=== PATIENT | female | born 1935 | race Caucasian/White ===

== ENCOUNTER → 2017-03-01 | Outpatient (REF) | payer MEDICARE, OTHER ==
[~2017-03-01] MED LIST: /WARF25TA OR; ACET500C; ACET50TAOT PO; ACET65TA; ACET65TA OR; AKWA TEARS OU; ALREX; AMBI5TAB; AMLO5TAB2 PO; AMLODIPINE; ASPI1TAB PO; ASPI81TA45 PO; AZEL0.1S3; BENZEPRIL; BUME1TA PO; BUME1TAB OR; CATA0.1T; CEFT2VL IV; CENTRUM SILVER VIT PO; CENTTAB PO; CLAR5CHW OR; COLA100C2; COLA100C2 OR; CRANBERRY PO; DO NOT TAKE; ECOT325T5; ESTR125TA; ESTR125TA OR; ESTR125TA PO; ESTRACE CREAM; ESTRACE CREAM PV; ESTRACE PV; FISH1000 PO; FLAG500T PO; GABA-282 PO; GABA300T; HEPARIN; HYDROCORTISONE0.5 % EX; LANS30CA PO; LISI-538 PO; LISI20TA5 OR; LOTE0.5S OU; LOTREL; MELO15TA3 PO; MELO15TA4 PO; MELOPOW; MELOPOW PO; MOME50SP; NASONEX; NORV5TAB; OPTI0.5D5 OU; OPTIVE EYE OU; PARO20TA3 PO; PAXI20TA OR; PREV30TA; PREV30TA OR; ROCEPHIN; SALINE FLUSH; SALINE NASAL SPRAY; SENO8.6T5 OR; SIMV40TA2 OR; SODIGEL; THERGRAN; TRAM100T; TRAM50TA2; TRAM50TA2 OR; TUMS500C OR; ULTR50TA PO; VITA500019 PO; VITA500046 PO; VITA500T; VITACAP31 PO; VITAMIN D50000 UNT; VITAMIND3 PO; XARE20TA PO; ZOCO40TA PO; [UNRECOGNIZED DRUG - CODE]; [UNRECOGNIZED DRUG - CODE] PO; [UNRECOGNIZED DRUG - CODE] PO; [UNRECOGNIZED DRUG - OTHER]; [UNRECOGNIZED DRUG - OTHER] PR
[2017-03-05 00:06] LABS: Lyme Disease IgG/IgM Antibodie <0.91 ISR (0.00-0.90); Lyme Disease IgM Ab Quantitati <0.80 index (0.00-0.79)
== END ==
LOC: M LAB REF 16:52
PROVIDERS: ATTEND Nurse Practitioner Family
DX: R21 Rash and other nonspecific skin eruption (principal)

== ENCOUNTER → 2017-05-31 | Outpatient (CLI) | payer MEDICARE, OTHER ==
--- NOTE | 2017-05-31 10:05 | REP ---
CHEST, TWO VIEWS: Two views of the chest are performed and compared to multiple prior exams, the most recent of which is 03/13/2016. There is scattered interstitial fibrosis bilaterally. There is chronic elevation of the right hemidiaphragm. I see no acute infiltrate. The heart is not enlarged. There is calcified tortuous aorta. Mediastinal silhouette is unchanged. There are degenerative changes of the spine. IMPRESSION: Stable chronic findings without evidence of acute infiltrate. Signed by Iron Agudelo MD 05/31/2017 04:57 P
== END ==
LOC: M WUC 09:33
PROVIDERS: ATTEND Physician Assistant
DX: R05 Cough (principal)

== ENCOUNTER 2018-01-31 12:15 | Emergency (ER) | payer MEDICARE, BC, OTHER | END 2018-01-31 13:30 | disposition home or self-care (01) | LOC: M ED 12:15 | DX: S00.531A Contusion of lip, initial encounter (principal); S80.211A Abrasion, right knee, initial encounter; W18.00XA Striking against unspecified object with subsequent fall, initial encounter; Y92.232 Corridor of hospital as the place of occurrence of the external cause; I10 Essential (primary) hypertension; K21.9 Gastro-esophageal reflux disease without esophagitis; F33.9 Major depressive disorder, recurrent, unspecified; Z82.49 Family history of ischemic heart disease and other diseases of the circulatory system; Z88.5 Allergy status to narcotic agent; Z88.8 Allergy status to other drugs, medicaments and biological substances; Z88.2 Allergy status to sulfonamides | CPT/HCPCS: 99282 ==

== ENCOUNTER → 2018-08-18 | Outpatient (REF) | payer MEDICARE, BC ==
[~2018-08-18] MED LIST changes: +ACET500T15 PO; -ACET50TAOT PO; +AMLO5TAB6 PO; +ASPI81TA85 PO; -BUME1TA PO; +BUME1TAB3 PO; +CULT10CA2 PO; -GABA-282 PO; +GABA-843 PO; +MELO15TA28 PO; -MELO15TA4 PO; +SYNT50TA PO; +VITA2000 PO
[2018-08-18 19:40] LABS: PERCENT SATURATION 5.3 % (13.2-45.0)
== END ==
LOC: M LAB REF 17:40
PROVIDERS: ATTEND Internal Medicine
DX: D64.9 Anemia, unspecified (principal)

== ENCOUNTER → 2018-09-30 | Outpatient (REF) | payer MEDICARE, BC ==
[~2018-09-30] MED LIST changes: -/WARF25TA OR; +ASPI81TA26 PO; +COUM1TAB18 OR
[2018-09-30 13:06] LABS: PERCENT SATURATION 37.9 % (13.2-45.0)
== END ==
LOC: M LAB REF 12:16
PROVIDERS: ATTEND Internal Medicine
DX: D64.9 Anemia, unspecified (principal)

== ENCOUNTER 2019-02-11 06:15 | Emergency (ER) | payer MEDICARE, BC ==
[~2019-02-11] VITALS: Ht 152.4 cm; Wt 50.0 kg
[2019-02-11] MEDS ORDERED: ESTR125TA PO (06:45)
[2019-02-11] MEDS ORDERED: IRON1TAB2 PO (06:45)
[2019-02-11] MEDS ORDERED: D 101000 PO (06:45)
[2019-02-11] MEDS ORDERED: MAGN1CAP PO (06:45)
[2019-02-11 06:55] LABS: BASO # 0.1 10^3/uL (0.0-0.2); EOS # 0.2 10^3/uL (0.0-0.50); EOS % 2.5 % (0.0-3.0); HEMATOCRIT 38.4 % (36.0-47.0); HEMOGLOBIN 12.3 g/dl (12.0-15.5); LYMPH # 1.5 10^3/uL (1.5-4.5); LYMPH % 21.3 % (24.0-44.0); MEAN CORPUSCULAR HEMOGLOBIN 30.4 pg (27.0-33.0); MEAN CORPUSCULAR VOLUME 94.8 fl (80.0-96.0); MONO # 0.6 10^3/uL (0.0-0.8); MONO % 7.8 % (0.0-5.0); NEUTROPHILS # 4.8 10^3/uL (1.8-7.7); NEUTROPHILS % 67.1 % (36.0-66.0); PLATELET COUNT, AUTOMATED 231 10^3/uL (150-450); RED BLOOD COUNT 4.05 10^6/uL (4.00-5.40); WHITE BLOOD COUNT 7.2 10^3/uL (4.0-10.0)
[2019-02-11 07:20] LABS: CALCIUM LEVEL 8.9 MG/DL (8.8-10.2); CREATININE FOR GFR 1.08 MG/DL (0.55-1.30); GLOMERULAR FILTRATION RATE 51.5 (>32); POTASSIUM SERUM 4.7 MEQ/L (3.5-5.1)
[2019-02-11] MEDS ORDERED: MECLIZINE 25 MG TABLET PO ONE (07:30)
--- NOTE | 2019-02-11 07:42 | REPVR ---
EXAM: CT Head Without Contrast EXAM DATE/TIME: 02/11/2019 7:35 AM CLINICAL HISTORY: 83 years old, female; Pain; Headache; Additional info: Vertigo TECHNIQUE: Imaging protocol: Computed tomography images of the head without contrast. Radiation optimization: All CT scans at this facility use at least one of these dose optimization techniques: automated exposure control; mA and/or kV adjustment per patient size (includes targeted exams where dose is matched to clinical indication); or iterative reconstruction. COMPARISON: CT Head without contrast 08/12/2015 3:29 AM FINDINGS: Brain: There is no acute intracranial abnormality. Mild prominence of ventricles and sulci representing volume loss. Mild small vessel ischemic changes are seen. There is no mass, midline shift, or mass effect. Agudelo-white matter differentiation is preserved. There is no evidence of hemorrhage. There is no extra-axial fluid collection. Basal cisterns are patent. Ventricles: See Brain Finding. Bones/joints: The visualized osseous structures are unremarkable. Sinuses: Visualized sinuses are clear. Mastoid air cells: Mastoid air cells are clear. Soft tissues: Unremarkable. IMPRESSION: 1. Mild volume loss and small vessel ischemic changes. . 2. No acute intracranial abnormality. Electronically signed by: Suzette Link On 02/11/2019 07:41:56 AM
[2019-02-11 10:01] VITALS: O2SAT 98
[2019-02-11] MEDS ORDERED: ACETAMINOPHEN 325 MG TAB As Ordered ONE (11:33)
[2019-02-11] MEDS ORDERED: ACETAMINOPHEN TAB 650MG DOSE (2X325MG) PO ONE (11:45)
--- NOTE | 2019-02-11 12:13 | REP ---
MRI of the brain without contrast Indication: Evaluate for cerebellar CVA. Comparison: MRI brain of 08/12/2015. Technique: MRI of the brain was performed without contrast utilizing sagittal T1 FLAIR, and axial DWI, T1, T2, GRE, and FLAIR imaging. Findings: There is patient motion artifact which degrades image quality and decreases the sensitivity for detection of small lesions. Within this limitation, there is no restricted diffusion to suggest acute ischemia or infarction. There are scattered T2 hyperintensities within the periventricular, subcortical and pontine white matter which are nonspecific but suggestive of microvascular ischemic disease, similar to prior. There is a lacunar infarct within the right briggs radiata which is chronic. The ventricles and sulci are symmetric. There is no extra-axial fluid collection. There is no mass effect. There is no midline shift or basal cistern effacement. The visualized flow voids are preserved. [place] ocular lenses are surgically absent. The visualized paranasal sinuses and mastoid air cells are clear. Impression: There is patient motion artifact which degrades image quality and decreases the sensitivity for detection of small lesions. No acute ischemia or infarction. Chronic right briggs radiata lacunar infarct. Nonspecific periventricular, subcortical and pontine white matter changes suggestive of microvascular ischemic disease, similar to prior. Electronically Signed by Benitez Cheng MD 02/11/2019 11:29 A
--- NOTE | 2019-02-11 12:14 | REP ---
MRA of the head without contrast Indication: Evaluate for cerebellar CVA. Comparison: MRI brain of 08/12/2015. Technique: MRA of the brain was performed without contrast. Tumble and spin MIP images of the intracranial arteries were provided. Findings: There is antegrade flow within the distal ICAs, proximal ACAs, MCAs, regional ehs manager, distal vertebral arteries and basilar artery. The right vertebral artery is dominant. There is no occlusion or aneurysmal formation. Impression: No cerebrovascular occlusion of or aneurysmal formation. Electronically Signed by Benitez Cheng MD 02/11/2019 11:38 A
[2019-02-11 13:00] VITALS: BP 134/64
[2019-02-11] MEDS ORDERED: LISI10TA4 PO (13:13)
[2019-02-11] MEDS ORDERED: RA T500C2 PO (13:13)
[2019-02-11] MEDS ORDERED: VITMTA PO (13:13)
[2019-02-11] MEDS ORDERED: RANI1TAB38 PO (13:13)
[2019-02-11] MEDS ORDERED: MECL-68 PO (13:33)
--- NOTE | 2019-02-11 13:38 | ED PDOC ---
Post-Departure Follow-Up After failing her attempt at independent ambulation, the patient and her family were agreeable to admission. Upon evaluation by the Hospitalist, the patient refused admission. The family were unable to dissuade her. SHe was alert and oriented, understood the risks of further symptoms, possible falls with injuries and/or . SHe has capacity to choose and is signing out Issac Pierce M.D. Feb 11, 2019 13:38
--- NOTE | 2019-02-11 16:47 | CR.PDOC ---
General Date of Consultation: Feb 11, 2019 Primary Care Physician: Jr Colunga Collins Attending Physician: HUMBERTO RAMIREZ DO Consultation REASON FOR CONSULTATION/CHIEF COMPLAINT: Vertigo HISTORY OF PRESENT ILLNESS: Patient is 83 years old female with past medical history of hyperlipidemia, hypertension, liver abscess, rotator cuff injury presented to the hospital with vertigo since this morning. Patient stated that in the morning she started feeling that she can lose her balance and she is unsteady in her gait. Patient stated that she never had it before. Patient denied any recent common cold or diarrhea. Patient denied lightheadedness, diplopia, any neurological focal deficiency. In Emergency room brain imaging study was done and it was negative. Patient stated that his symptoms was associated with nausea. Patient denies fevers, chills, chest pain, palpitations, diarrhea or dysuria. ALLERGIES: Please see below. HOME MEDICATIONS: Please see below. PAST MEDICAL HISTORY: Hyperlipidemia, hypertension, rotator cuff injury, liver abscess PAST SURGICAL HISTORY: rotator cuff injury repair FAMILY HISTORY: Mother had dementia Father from heart attack SOCIAL HISTORY: Marital status and/or living arrangements: Children: 2 Tobacco use: None ETOH: None Illicit drug use: None IV drug use: None 10 point review of system negative except what is mentioned in the HPI PHYSICAL EXAMINATION: Objective: General: Frail female HEENT: PERRLA, EOMI, no JVD CV: S1-S2 Lungs: Diminished lung sounds bilaterally Abdomen: nontender, nondistended Extremities: No swelling no cyanosis Neuro: Nonfocal, cranial nerves from 2-12 intact, no nuchal rigidity LABORATORY DATA: Please see below. ASSESSMENT/PLAN: Patient left the hospital against medical advise, all negative consequences of her decision has been explained including trauma and Vital Signs/I&O Vital Signs Date Time Temp Pulse Resp B/P (MAP) Pulse Ox O2 Delivery O2 Flow Rate FiO2 02/11/19 13:30 97.6 68 97 02/11/19 13:00 134/64 (87) 02/11/19 10:00 18 Room Air Laboratory Data Labs 24H Laboratory Tests 2 02/11/19 06:32: Bedside Glucose (Misc Panel) 89 02/11/19 06:43: Immature Granulocyte % (Auto) 0.3, White Blood Count 7.2, Red Blood Count 4.05, Hemoglobin 12.3, Hematocrit 38.4, Mean Corpuscular Volume 94.8, Mean Corpuscular Hemoglobin 30.4, Mean Corpuscular Hemoglobin Concent 32.0, Red Cell Distribution Width 14.4, Platelet Count 231, Neutrophils (%) (Auto) 67.1H, Lymphocytes (%) (Auto) 21.3L, Monocytes (%) (Auto) 7.8H, Eosinophils (%) (Auto) 2.5, Basophils (%) (Auto) 1.0, Neutrophils # (Auto) 4.8, Lymphocytes # (Auto) 1.5, Monocytes # (Auto) 0.6, Eosinophils # (Auto) 0.2, Basophils # (Auto) 0.1, Nucleated Red Blood Cells % (auto) 0.0, Anion Gap 5L, Glomerular Filtration Rate 51.5, Blood Urea Nitrogen 27H, Creatinine 1.08, Sodium Level 142, Potassium Level 4.7, Chloride Level 104, Carbon Dioxide Level 33H, Calcium Level 8.9 CBC/BMP Laboratory Tests 02/11/19 06:43 Red Blood Count 4.05, Mean Corpuscular Volume 94.8, Mean Corpuscular Hemoglobin 30.4, Mean Corpuscular Hemoglobin Concent 32.0, Red Cell Distribution Width 14.4, Neutrophils (%) (Auto) 67.1 H, Lymphocytes (%) (Auto) 21.3 L, Monocytes (%) (Auto) 7.8 H, Eosinophils (%) (Auto) 2.5, Basophils (%) (Auto) 1.0, Neutrophils # (Auto) 4.8, Lymphocytes # (Auto) 1.5, Monocytes # (Auto) 0.6, Eosinophils # (Auto) 0.2, Basophils # (Auto) 0.1, Calcium Level 8.9 Allergies Coded Allergies: nitrofurantoin (Verified Allergy, Intermediate, ITCHING, SWELLING, 02/11/19) Sulfa (Sulfonamide Antibiotics) (Verified Adverse Reaction, Intermediate, HALLUCINATIONS, ITCHING, 02/11/19) hydrocodone (Verified Adverse Reaction, Intermediate, HALLUCINATIONS, ITCHING, 02/11/19) oxycodone (Verified Adverse Reaction, Intermediate, HALLUCINATIONS, ITCHING, 02/11/19) pentazocine (Verified Adverse Reaction, Intermediate, HALLUCINATIONS, ITCHING, 02/11/19) Home Medications Scheduled Aspirin (Aspir 81) 81 Mg Tab, 81 MG PO QHS, (Reported) Bumetanide (Bumetanide) 1 Mg Tab, 1 MG PO DAILY, (Reported) Cholecalciferol (Vitamin D3) (Vitamin D3) 1,000 Unit Capsule, 2,000 UNIT PO DAILY, (Reported) Conjugated Estrogens (Premarin) 1.25 Mg Tab, 1.25 MG PO 2XW, (Reported) EVERY , Ferrous Sulfate (Iron) 325 Mg Tablet, 325 MG PO BID, (Reported) Lansoprazole (Lansoprazole) 30 Mg Cap, 30 MG PO BID, (Reported) Levothyroxine Sodium (Synthroid) 50 Mcg Tab, 50 MCG PO QHS, (Reported) Lisinopril (Lisinopril) 10 Mg Tablet, 10 MG PO DAILY, (Reported) Magnesium Oxide (Magnesium) 500 Mg Capsule, 500 MG PO QHS, (Reported) Meclizine HCl (Meclizine HCl) 25 Mg Tablet, 25 MG PO Q8H, #21 Meloxicam (Meloxicam) 15 Mg Tab, 15 MG PO DAILY, (Reported) Multivitamins (Thera M Plus Tablet) 1 Each Tablet, 1 TAB PO DAILY, (Reported) Paroxetine HCl (Paroxetine HCl) 20 Mg Tab, 20 MG PO DAILY, (Reported) Ranitidine Hcl (Ranitidine HCl) 150 Mg Tablet, 1 TAB PO DAILY, (Reported) Simvastatin (Zocor) 40 Mg Tab, 40 MG PO QHS, (Reported) Turmeric Root Extract (Turmeric) 500 Mg Capsule, 500 MG PO QHS, (Reported) Scheduled PRN Acetaminophen (Acetaminophen) 500 Mg Tab, 500 MG PO Q4H PRN for PAIN, (Reported) HUMBERTO RAMIREZ DO Feb 11, 2019 16:47
--- NOTE | 2019-02-12 20:35 | ECGEPIP ---
[facility] - ED Test Date: 2019-02-11 Pat Name: ANALI WHITESIDE Department: Room: - Gender: Female [employer]: margarita : 1935 Requested By: CLARITZA Meléndez Order Number: [id number] Reading MD: Susan Oviedo Measurements Intervals [place] Rate: 64 P: 58 MA: 162 QRS: 18 QRSD: 125 T: 15 QT: 461 QTc: 478 Interpretive Statements SINUS RHYTHM RIGHT BUNDLE BRANCH BLOCK DECREASED RATE 03/22/16 Electronically Signed on 02-12-2019 20:35:10 EDT by Susan Oviedo
== END 2019-02-11 13:56 | disposition left against medical advice (07) ==
LOC: M ED 06:15 → CANBEDREQ 13:32 → M ED 13:56
DX: R42 Dizziness and giddiness (principal); I45.10 Unspecified right bundle-branch block; I63.9 Cerebral infarction, unspecified; I10 Essential (primary) hypertension; K21.9 Gastro-esophageal reflux disease without esophagitis; F32.9 Major depressive disorder, single episode, unspecified; K75.0 Abscess of liver; Z79.82 Long term (current) use of aspirin; Z79.899 Other long term (current) drug therapy; Z88.2 Allergy status to sulfonamides; Z88.5 Allergy status to narcotic agent; Z88.8 Allergy status to other drugs, medicaments and biological substances

== ENCOUNTER → 2019-06-29 | Outpatient (REF) | payer MEDICARE, BC ==
[~2019-06-29] MED LIST changes: +D 101000 PO; +IRON1TAB2 PO; +LISI10TA4 PO; +MAGN1CAP PO; +MECL1TAB31 PO; +RA T500C2 PO; +RANI1TAB38 PO; +VITMTA PO
[2019-06-29 14:29] LABS: PERCENT SATURATION 17.7 % (13.2-45.0)
== END ==
LOC: M LAB REF 13:57
PROVIDERS: ATTEND Internal Medicine
DX: D64.9 Anemia, unspecified (principal)

== ENCOUNTER → 2019-08-05 | Outpatient (REF) | payer MEDICARE, BC | LOC: M LAB REF 10:08 | PROVIDERS: ATTEND Registered Nurse | DX: K62.5 Hemorrhage of anus and rectum (principal) ==

== ENCOUNTER → 2020-08-24 | Outpatient (CLI) | payer MEDICARE, BC ==
[~2020-08-24] MED LIST changes: +AMLO1TAB24 PO; -AMLO5TAB6 PO; -ASPI81TA85 PO; +ASPI81TA86 PO; +GABA-282 PO; -GABA-843 PO; -LISI-538 PO; +LISI10TA22 PO; -LISI10TA4 PO; +LISI20TA33 PO
--- NOTE | 2020-08-24 11:55 | REP ---
INDICATION: DYSPNEA COMPARISON: 05/31/2017 TECHNIQUE: PA and lateral. FINDINGS: Visualized mediastinum and cardiac silhouette are within normal limits and stable. Elevation to the right hemidiaphragm along with chronic bilateral pleuroparenchymal findings are unchanged. Subtle new superimposed left basilar and right peripheral airspace disease cannot definitively be excluded and should be correlated with auscultation and physical examination. No obvious effusion. No pneumothorax. Skeletal structures stable. IMPRESSION: Chronic stable changes. Cannot exclude subtle superimposed areas of opacity at the left base or peripheral right lung. Consider follow-up chest CT if the patient remains symptomatic. <Electronically signed by [place] > 08/24/20 [id number]
[2020-08-24 17:12] LABS: IRON (FE) 33 UG/DL (50-170); PERCENT SATURATION 7.2 % (13.2-45.0); TOTAL IRON BINDING CAPACITY 460 UG/DL (250-450)
[2020-08-24 17:50] LABS: VITAMIN B12 LEVEL 593 PG/ML
[2020-08-24 17:51] LABS: FOLATE > 24.0 NG/ML
== END ==
LOC: M WUC 11:35
PROVIDERS: ATTEND Internal Medicine
DX: R06.00 Dyspnea, unspecified (principal); D64.9 Anemia, unspecified

== ENCOUNTER → 2020-09-06 | Outpatient (REF) | payer MEDICARE, BC ==
[2020-09-06 18:08] LABS: PERCENT SATURATION 41.3 % (13.2-45.0)
== END ==
LOC: M LAB REF 16:36
PROVIDERS: ATTEND Internal Medicine
DX: D64.9 Anemia, unspecified (principal)

== ENCOUNTER → 2020-09-13 | Outpatient (CLI) | payer MEDICARE, BC ==
--- NOTE | 2020-09-13 09:39 | REPVR ---
PROCEDURE INFORMATION: Exam: CT Head Without Contrast Exam date and time: 09/13/2020 9:31 AM Age: 85 years old Clinical indication: Other: Unsteadiness ? nph TECHNIQUE: Imaging protocol: Computed tomography of the head without contrast. Radiation optimization: All CT scans at this facility use at least one of these dose optimization techniques: automated exposure control; mA and/or kV adjustment per patient size (includes targeted exams where dose is matched to clinical indication); or iterative reconstruction. COMPARISON: CT Head without contrast 02/11/2019 7:30 AM FINDINGS: Brain: CLINIC There is no acute intracranial hemorrhage or mass effect. Mild diffuse volume loss is within the range of normal for patient age. There are small vessel ischemic changes within the periventricular and subcortical white matter, but the normal [place]/white matter delineation is maintained. Chronic lacunar infarcts involve the right basal ganglia. Cerebral ventricles: No ventriculomegaly. Bones/joints: Unremarkable. No acute fracture. Paranasal sinuses: Visualized sinuses are unremarkable. No fluid levels. Mastoid air cells: Visualized mastoid air cells are well aerated. Soft tissues: Unremarkable. IMPRESSION: No acute hemorrhage or edema. Electronically signed by: Celeste Hooper On 09/13/2020 09:39:07 AM
== END ==
LOC: M RAD 09:25
PROVIDERS: ATTEND Internal Medicine
DX: R26.81 Unsteadiness on feet (principal)

== ENCOUNTER → 2020-11-25 | Outpatient (REF) | payer MEDICARE, BC | LOC: M WUC 15:37 | PROVIDERS: ATTEND Nurse Practitioner Family | DX: S81.802A Unspecified open wound, left lower leg, initial encounter (principal); W18.30XA Fall on same level, unspecified, initial encounter; Y92.009 Unspecified place in unspecified non-institutional (private) residence as the place of occurrence of the external cause ==

== ENCOUNTER → 2021-10-02 | Outpatient (REF) | payer MEDICARE, BC ==
[~2021-10-02] MED LIST changes: -MOME50SP; +NASO50SP3
[2021-10-02 18:13] LABS: PERCENT SATURATION 27.8 % (13.2-45.0)
== END ==
LOC: M LAB REF 17:25
PROVIDERS: ATTEND Internal Medicine
DX: N18.31 Chronic kidney disease, stage 3a (principal); D50.9 Iron deficiency anemia, unspecified

== ENCOUNTER → 2022-04-04 | Outpatient (CLI) | payer MEDICARE, BC | LOC: M WUC 13:13 | PROVIDERS: ATTEND Internal Medicine | DX: R05.3 Chronic cough (principal) ==

== ENCOUNTER → 2022-07-18 | Outpatient (REF) | payer MEDICARE, BC | LOC: M LAB REF 16:33 | PROVIDERS: ATTEND Internal Medicine | DX: R06.00 Dyspnea, unspecified (principal) ==

== ENCOUNTER → 2024-04-04 | Outpatient (REF) | payer MEDICARE, OTHER ==
[~2024-04-04] MED LIST changes: +GABA-1172 PO; -GABA-282 PO; +MECL-209 PO; -MECL1TAB31 PO; +OPTI0.5D2 OU; -OPTI0.5D5 OU; +SIMV-254 PO; -ZOCO40TA PO
[2024-04-04 20:40] LABS: APPEARANCE, URINE TURBID (CLEAR); BACTERIA, URINE AUTO NEGATIVE (NEGATIVE); BILIRUBIN, URINE AUTO NEGATIVE (NEGATIVE); BLOOD, URINE BLOOD 2+ (NEGATIVE); COLOR, URINE YELLOW (YELLOW); GLUCOSE, URINE (UA) AUTO NEGATIVE (NEGATIVE); KETONE, URINE AUTO TRACE mg/dL (NEGATIVE); LEUKOCYTE ESTERASE, URINE AUTO NEGATIVE (NEGATIVE); MUCUS, URINE SMALL (NEGATIVE); NITRITE, URINE AUTO NEGATIVE (NEGATIVE); PROTEIN, URINE AUTO 3+ mg/dL (NEGATIVE); RBC, URINE AUTO 152 /HPF (0-3); SPECIFIC GRAVITY URINE AUTO 1.019 (1.002-1.035); SQUAMOUS EPITHELIAL CELL UR AU 0 /HPF (0-6); UROBILINOGEN, URINE AUTO 0.2 mg/dL (0.0-2.0); WBC, URINE AUTO TNTC /HPF (0-3)
== END ==
LOC: M LAB REF 09:25
PROVIDERS: ATTEND Internal Medicine
DX: N39.0 Urinary tract infection, site not specified (principal)

== ENCOUNTER → 2024-04-16 | Outpatient (REF) | payer MEDICARE, OTHER ==
[2024-04-16 13:22] LABS: APPEARANCE, URINE TURBID (CLEAR); BACTERIA, URINE AUTO 1+ (NEGATIVE); BILIRUBIN, URINE AUTO NEGATIVE (NEGATIVE); BLOOD, URINE BLOOD 2+ (NEGATIVE); COLOR, URINE YELLOW (YELLOW); GLUCOSE, URINE (UA) AUTO NEGATIVE (NEGATIVE); KETONE, URINE AUTO TRACE mg/dL (NEGATIVE); LEUKOCYTE ESTERASE, URINE AUTO 2+ (NEGATIVE); NITRITE, URINE AUTO NEGATIVE (NEGATIVE); PROTEIN, URINE AUTO 3+ mg/dL (NEGATIVE); RBC, URINE AUTO 96 /HPF (0-3); SPECIFIC GRAVITY URINE AUTO 1.015 (1.002-1.035); SQUAMOUS EPITHELIAL CELL UR AU 0 /HPF (0-6); UROBILINOGEN, URINE AUTO 0.2 mg/dL (0.0-2.0); WBC, URINE AUTO TNTC /HPF (0-3)
== END ==
LOC: M LAB REF 12:32
PROVIDERS: ATTEND Internal Medicine
DX: N39.0 Urinary tract infection, site not specified (principal)